=== PATIENT | female | born 1940 | race Hispanic/Latino ===

== ENCOUNTER 2017-09-19 12:16 | Inpatient (IN) | payer MEDICARE ==
[~2017-09-19] VITALS: Ht 157.5 cm; Wt 60.6 kg
[2017-09-19] MEDS ORDERED: CEFTRIAXONE SODIUM 2 GM VIAL ONE (12:53)
[2017-09-19] MEDS ORDERED: VANCOMYCIN 1GM+NS 250ML 250 ML IV ONE (12:54)
[2017-09-19 13:03] LABS: BASOPHILS % (AUTO) 0.2 % (0.0-5.0); HEMATOCRIT 38.2 % (36-48); LYMPHOCYTES % (AUTO) 6.6 % (21.0-51.0); MEAN CORPUSCULAR HEMOGLOBIN 31.3 pg (27.0-33.0); MEAN CORPUSCULAR HGB CONC 34.9 g/dL (32.0-36.0); MEAN CORPUSCULAR VOLUME 89.6 fL (79-99); MONOCYTES % (AUTO) 4.6 % (3.0-13.0); NEUTROPHILS % (AUTO) 88.6 % (40.0-77.0); PLATELET COUNT (AUTO) 152 K/uL (130-400); RED BLOOD CELL COUNT(AUTO) 4.26 MIL/uL (4.00-5.50); RED CELL DISTRIBUTION WIDTH 13.1 % (11.0-15.5); WHITE BLOOD COUNT (AUTO) 19.5 K/uL (4.8-10.8)
[2017-09-19 13:16] LABS: INR 0.99 (0.85-1.15); PARTIAL THROMBOPLASTIN TIME 27.3 SEC (26.3-35.5); PROTHROMBIN TIME 10.4 SEC (9.6-11.6)
[2017-09-19 13:24] LABS: CARBON DIOXIDE 25 mmol/L (21-32); CHLORIDE 103 mmol/L (101-111); CREATININE 0.8 mg/dL (0.5-1.5); GLOMERULAR FILTR. RATE CALC 74 mL/min (>60); GLUCOSE,RANDOM 194 mg/dL (70-105); POTASSIUM 3.6 mmol/L (3.5-5.1); SODIUM SERUM 139 mmol/L (136-145); UREA NITROGEN, BLOOD 13 mg/dL (7-18)
[2017-09-19 13:39] LABS: ALANINE AMINOTRANSFERASE 62 U/L (12-78); ALBUMIN 4.1 g/dL (3.5-5.0); ASPARTATE AMINOTRANSFERASE 40 U/L (10-37); BILIRUBIN,TOTAL 1.6 mg/dL (0.2-1.0); CREATINE KINASE MB 0.5 ng/mL (0.5-3.6); CREATINE KINASE, TOTAL 55 U/L (21-232); MYOGLOBIN 29 ng/mL (10-92); TOTAL PROTEIN, SERUM 7.7 g/dL (6.0-8.3); TROPONIN I < 0.04 ng/mL (0.00-0.06)
[2017-09-19 13:41] LABS: APPEARANCE,URINE Cloudy (CLEAR); BILIRUBIN,URINE Negative (NEGATIVE); COLOR,URINE Yellow (YELLOW); GLUCOSE, URINE (UA) Negative (NEGATIVE); KETONES,URINE Negative (NEGATIVE); LEUKOCYTE ESTERASE ,URINE Trace (NEGATIVE); NITRATE,URINE Negative (NEGATIVE); OCCULT BLOOD,URINE Negative (NEGATIVE); PROTEIN,URINE Negative (NEGATIVE)
[2017-09-19 14:12] LABS: BACTERIA,URINE Rare /HPF (None Seen); SQUAMOUS EPITHELIAL CELL,UR Rare /HPF (0-2); WBC,URINE 0-1 /HPF (0-1)
[2017-09-19] MEDS ORDERED: SODIUM CHLORIDE 0.9% 1000ML 2,000 ML IV ONE (14:30)
[2017-09-19] MEDS ORDERED: HYDRALAZINE HCL 20 MG/ML VIAL IV PRN (15:15)
[2017-09-19 16:00] VITALS: BP 115/64
[2017-09-19] MEDS ORDERED: ZOSYN 3.375GM+NS 50ML 50 ML IV SCH (16:00)
[2017-09-19] MEDS ORDERED: SIMV20TA6 PO (17:35)
[2017-09-19] MEDS ORDERED: LOSA100T29 PO (17:35)
[2017-09-19] MEDS ORDERED: AMLO10TA2 PO (17:35)
[2017-09-19] MEDS ORDERED: CYAN-35 PO (17:35)
[2017-09-19] MEDS ORDERED: HYDR12.530 PO (17:35)
[2017-09-19 19:58] VITALS: BP 107/58
[2017-09-19] MEDS: ZOSYN 3.375GM+NS 50ML 50 ML IV SCH (20:20)
[2017-09-19] MEDS: ATORVASTATIN CALCIUM 10 MG TABLET PO SCH (20:20)
[2017-09-19] MEDS: ACETAMINOPHEN 325 MG TAB PO PRN (23:43)
[2017-09-20] VITALS: BP 101/62
[2017-09-20 04:00] VITALS: BP 90/48
[2017-09-20] MEDS: ZOSYN 3.375GM+NS 50ML 50 ML IV SCH ×3 (04:38→21:51)
[2017-09-20 08:47] VITALS: BP 105/55
[2017-09-20] MEDS: CYANOCOBALAMIN (VITAMIN B-12) 1,000 MCG TABLET PO SCH (08:56)
[2017-09-20] MEDS: LOSARTAN 100 MG TABLET PO SCH (09:00)
[2017-09-20] MEDS: HYDROCHLOROTHIAZIDE 25 MG TABLET PO SCH (09:00)
[2017-09-20] MEDS: AMLODIPINE BESYLATE 5 MG TAB PO SCH (09:00)
[2017-09-20 11:38] VITALS: BP 102/58
[2017-09-20] MEDS ORDERED: ONDANSETRON HCL MDV 20ML 2 MG/ML VIAL IVP PRN (14:30)
[2017-09-20] MEDS ORDERED: PHARMACY COMMUNICATION MISC SCH (14:45)
[2017-09-20] MEDS: VANCOMYCIN 1GM+NS 250ML 250 ML IV SCH (15:03)
[2017-09-20 15:31] VITALS: BP 119/61
[2017-09-20 19:00] VITALS: BP 124/55
[2017-09-20] MEDS: ATORVASTATIN CALCIUM 10 MG TABLET PO SCH (21:51)
[2017-09-20] MEDS: ACETAMINOPHEN 325 MG TAB PO PRN (21:52)
[2017-09-20] MEDS ORDERED: MAGNESIUM 2GM PREMIX 50ML 50 ML IV PRN (22:15)
[2017-09-20] MEDS ORDERED: POTASSIUM CHLORIDE 10% ELIXIR 20 MEQ/15 ML UDCUP PO PRN (22:15)
[2017-09-20] MEDS ORDERED: LIDOCAINE HCL-MPF 1% 2ML VIAL IVP PRN (22:15)
[2017-09-20] MEDS ORDERED: POTASSIUM CHLORIDE 20MEQ/100ML 100 ML IV PRN (22:15)
[2017-09-21] VITALS (7 sets, daily range): BP systolic 98–144; BP diastolic 55–67
[2017-09-21] MEDS: ZOSYN 3.375GM+NS 50ML 50 ML IV SCH ×3 (05:37→21:16)
[2017-09-21 05:55] LABS: HEMATOCRIT 34.8 % (36-48); MEAN CORPUSCULAR HGB CONC 35.6 g/dL (32.0-36.0); PLATELET COUNT (AUTO) 142 K/uL (130-400); RED BLOOD CELL COUNT(AUTO) 3.87 MIL/uL (4.00-5.50); RED CELL DISTRIBUTION WIDTH 13.4 % (11.0-15.5); WHITE BLOOD COUNT (AUTO) 8.9 K/uL (4.8-10.8)
[2017-09-21 07:59] LABS: BAND NEUTROPHILS % (MANUAL) 2 % (0-2); EOSINOPHILS % (MANUAL) 1 % (1-6); LYMPHOCYTES % (MANUAL) 22 % (22-44); MAN.DIFF COMMENT-IMPRESSION MANUAL DIFFERENTIAL; MONOCYTES % (MANUAL) 1 % (2-9); PLATELET MORPHOLOGY COMMENT ADEQUATE; SEGMENTED NEUTROPHILS % 74 % (40-70)
[2017-09-21] MEDS: CYANOCOBALAMIN (VITAMIN B-12) 1,000 MCG TABLET PO SCH (11:08)
[2017-09-21] MEDS: HYDROCHLOROTHIAZIDE 25 MG TABLET PO SCH (11:09)
[2017-09-21] MEDS: LOSARTAN 100 MG TABLET PO SCH (11:09)
[2017-09-21] MEDS: PANTOPRAZOLE SODIUM 40 MG TABLET.DR PO SCH (11:09)
[2017-09-21] MEDS: ENOXAPARIN SODIUM 30 MG/0.3 ML SQ SCH (11:13)
[2017-09-21] MEDS: VANCOMYCIN 1GM+NS 250ML 250 ML IV SCH (15:49)
[2017-09-21] MEDS: POTASSIUM CHLORIDE 20 MEQ ERTAB PO PRN ×2 (15:50→21:16)
[2017-09-21] MEDS: AMLODIPINE BESYLATE 5 MG TAB PO SCH (15:50)
[2017-09-21] MEDS: ATORVASTATIN CALCIUM 10 MG TABLET PO SCH (21:16)
[2017-09-22 03:00] VITALS: BP 110/53
[2017-09-22 04:37] LABS: HEMATOCRIT 34.6 % (36-48); MEAN CORPUSCULAR HEMOGLOBIN 32.6 pg (27.0-33.0); MEAN CORPUSCULAR HGB CONC 36.4 g/dL (32.0-36.0); MEAN CORPUSCULAR VOLUME 89.6 fL (79-99); PLATELET COUNT (AUTO) 188 K/uL (130-400); RED BLOOD CELL COUNT(AUTO) 3.86 MIL/uL (4.00-5.50); WHITE BLOOD COUNT (AUTO) 6.3 K/uL (4.8-10.8)
[2017-09-22 04:49] LABS: BILIRUBIN,TOTAL 0.6 mg/dL (0.2-1.0); CREATININE 0.8 mg/dL (0.5-1.5); POTASSIUM 4.3 mmol/L (3.5-5.1); TOTAL PROTEIN, SERUM 6.9 g/dL (6.0-8.3)
[2017-09-22] MEDS: ZOSYN 3.375GM+NS 50ML 50 ML IV SCH (05:21)
[2017-09-22 08:00] VITALS: BP 125/62
[2017-09-22] MEDS: AMLODIPINE BESYLATE 5 MG TAB PO SCH (10:28)
[2017-09-22] MEDS: HYDROCHLOROTHIAZIDE 25 MG TABLET PO SCH (10:29)
[2017-09-22] MEDS: CYANOCOBALAMIN (VITAMIN B-12) 1,000 MCG TABLET PO SCH (10:29)
[2017-09-22] MEDS: PANTOPRAZOLE SODIUM 40 MG TABLET.DR PO SCH (10:29)
[2017-09-22] MEDS: LOSARTAN 100 MG TABLET PO SCH (10:30)
[2017-09-22] MEDS: ENOXAPARIN SODIUM 30 MG/0.3 ML SQ SCH (10:31)
[2017-09-22 12:00] VITALS: BP 125/59
== END 2017-09-22 13:35 | disposition home or self-care (01) | DRG 872 ==
LOC: EDH 12:16 → EDHIP 14:45 → 3AH 15:14
PROVIDERS: ADMIT Family Medicine; ATTEND Family Medicine
DX: A41.9 Sepsis, unspecified organism (principal); L03.115 Cellulitis of right lower limb; E78.5 Hyperlipidemia, unspecified; R73.9 Hyperglycemia, unspecified; I10 Essential (primary) hypertension; Z90.710 Acquired absence of both cervix and uterus
CPT/HCPCS: 36415; 71045; 80053; 81001; 82550; 82553; 83605; 83874; 84484; 85025; 85027; 85610; 85730; 87040; 87088; 93005; 93970; J0696; J1650; J2543; J3370; J7030

== ENCOUNTER → 2023-12-23 | Outpatient (CLI) | payer OTHER, MEDICARE ==
[~2023-12-23] MED LIST: AMLO-258 PO; CYAN-35 PO; HYDR12.530 PO; LOSA100T59 PO; SIMV-43 PO
== END | disposition home or self-care (01) ==
LOC: RAH 11:19
PROVIDERS: ATTEND Family Medicine
DX: M47.816 Spondylosis without myelopathy or radiculopathy, lumbar region (principal); M43.8X6 Other specified deforming dorsopathies, lumbar region; I70.0 Atherosclerosis of aorta; M54.9 Dorsalgia, unspecified
CPT/HCPCS: 72100

== ENCOUNTER → 2025-02-06 | Outpatient (CLI) | payer OTHER, MEDICARE ==
--- NOTE | 2025-02-06 18:23 | HMCIMG ---
EXAM: CT Head Without IV contrast. CLINICAL HISTORY: Syncope and collapse TECHNIQUE: Axial computed tomography images of the head/brain without intravenous contrast. COMPARISON: None provided. FINDINGS: BRAIN: Moderate cerebral and cerebellar atrophy - prominent sulcal spaces, sylvian fissures, bilateral lateral ventricles and folia respectively. Periventricular hypodensities are consistent with chronic small vessel ischemic disease. Focal hypodense area in periventricular white matter of left occipital region, possibly chronic infarct. No evidence of acute hemorrhage. No mass lesion. No CT evidence for acute territorial infarct. No midline shift or extra-axial collections. VENTRICLES: No hydrocephalus. ORBITS: The orbits are unremarkable. SINUSES AND MASTOIDS: Bilateral chronic mastoiditis with ear wax. BONES: Bilateral hyperostosis frontalis interna. No fracture. SOFT TISSUES: Unremarkable. IMPRESSION: Moderate cerebral and cerebellar atrophy. Chronic small vessel ischemic disease. 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 No acute bleed or infarct. /[place]
== END | disposition home or self-care (01) ==
LOC: RAH 13:47
PROVIDERS: ATTEND Family Medicine
DX: I67.82 Cerebral ischemia (principal); M85.2 Hyperostosis of skull; H70.13 Chronic mastoiditis, bilateral; G31.89 Other specified degenerative diseases of nervous system; R55 Syncope and collapse
CPT/HCPCS: 70450